=== PATIENT | male | born 1985 | race Caucasian/White ===

== ENCOUNTER → 2023-08-08 16:28 | Outpatient (BNVA) | payer BC, SELFPAY | PROVIDERS: Visit Provider Emergency Medicine | DX: R16.0 Hepatomegaly, not elsewhere classified (principal) | CPT/HCPCS: 80053; 80074; 85007; 85027; 85610; 85730 ==

== ENCOUNTER → 2023-08-12 14:34 | Outpatient (BNVA) | payer BC, SELFPAY | PROVIDERS: Visit Provider Family Medicine | DX: E03.9 Hypothyroidism, unspecified (principal); R16.0 Hepatomegaly, not elsewhere classified; R79.89 Other specified abnormal findings of blood chemistry | CPT/HCPCS: 80053; 84439; 84443 ==

== ENCOUNTER 2023-08-24 08:28 | Outpatient (CLI) | payer BC, SELFPAY ==
--- NOTE | 2023-08-24 08:45 | US_ITS ---
WS: [id number] Complete ABDOMINAL ULTRASOUND HISTORY: hepatomegaly COMPARISON: None available. Liver: 15.8 cm in length. Normal size liver and echogenicity. No bile duct dilatation or mass. Portal Vein: Normal hepatopetal flow with monophasic waveform. Gallbladder: Normally distended gallbladder with no stones or wall thickening. CBD: 0.3 cm Pancreas: Normal size and echogenicity. Right kidney: 11.1 cm x 5.6 x 4.6 cm. Cortex:1.1 cm. Normal size and echogenicity. No hydronephrosis or mass. Left kidney: 11.0 cm x 6.0 cm x 5.5 cm. Cortex: 1.5 cm. Normal size and echogenicity. No hydronephrosis or mass. Spleen: 12.0; normal. Aorta and IVC: Unremarkable abdominal aorta and IVC. Impression: Normal complete abdomen ultrasound.
== END 2023-08-24 08:29 | disposition home or self-care (01) ==
LOC: RAD 08:30
PROVIDERS: PCP Family Medicine; Visit Provider Emergency Medicine
DX: R16.0 Hepatomegaly, not elsewhere classified (principal)
CPT/HCPCS: 76700

== ENCOUNTER 2023-11-11 07:58 | Day surgery (SDC) | payer BC, SELFPAY ==
--- NOTE | 2023-11-11 08:05 | ANES.PREANE2 ---
Pre-Anesthetic Assessment Height/Weight: Height 1.78 m Weight 108.862 kg Operation Date: 11/11/23 09:00 Proposed Procedures p EGD(Not Applicable) - Bhavesh Lieberman DO s Colonoscopy(Not Applicable) - Bhavesh Lieberman DO Social Alcohol and Tobacco Exam alert, oriented x 3, clear to auscultation bilaterally and regular rate & rhythm Airway Submandibular: within normal limits Cervical ROM: within normal limits Mallampati: Class II CV/HEM Hypertension Hepatic Hepatomegally Metabolic Thyroid Disease (Hypo) Anesthetic Plan ASA status: 2 Anesthesia: MAC Medications/Allergies Home Medications Medication Instructions Recorded Confirmed Last Taken Type olmesartan 40 mg tablet 40 mg PO DAILY 08/08/23 11/09/23 11/09/23 History levothyroxine 75 mcg capsule 75 mcg PO DAILY #90 caps 08/14/23 11/09/23 11/11/23 Rx tirzepatide 2.5 mg/0.5 mL 2.5 mg SUBCUT .weekly 09/24/23 11/09/23 2 Weeks Ago History subcutaneous pen injector ~10/26/23 Allergies Allergy/AdvReac Type Severity Reaction Status Date / Time No Known Allergies Allergy Verified 11/09/23 11:25 [facility] Anesthesia Medical History Hx of blood clots Low testosterone in male Hypothyroidism Essential hypertension Social History Smoking and tobacco/nicotine status: current every day tobacco/nicotine user smokeless tobacco Smokeless tobacco user: chewing tobacco Alcohol intake: current Alcohol intake frequency: 0-2 Drinks per Day Substance/Drug Use: former Former substance use details: last used 17yrs ago Data Anesthesia Cardiac Studies: No Data to Display
[2023-11-11 08:12] VITALS: BP 124/87; PULSE 81; RESP 18; TEMP 36.2; O2SAT 96
[2023-11-11] MEDS: sodium chloride 0.9% 1,000 ML 30 ML IV (08:15)
--- NOTE | 2023-11-11 09:14 | PM.HP ---
Providers/Chief Complaint Primary Care Provider: Deny Sanders MD Chief Complaint: Z12.11 History of Present Illness Caleb Tarango is a 38 year old male Review of Systems General: Reports: 10 or more systems reviewed and unremarkable except in HPI and below Medications/Allergies Home Medications Medication Instructions Recorded Confirmed Last Taken Type olmesartan 40 mg tablet 40 mg PO DAILY 08/08/23 11/09/23 11/10/23 History levothyroxine 75 mcg capsule 75 mcg PO DAILY #90 caps 08/14/23 11/09/23 11/10/23 Rx tirzepatide 2.5 mg/0.5 mL 2.5 mg SUBCUT .weekly 09/24/23 11/09/23 2 Weeks Ago History subcutaneous pen injector ~10/26/23 Allergies Allergy/AdvReac Type Severity Reaction Status Date / Time No Known Allergies Allergy Verified 11/09/23 11:25 PFSH Acute PFSH: Medical History Hx of blood clots Low testosterone in male Hypothyroidism Essential hypertension Social History Smoking and tobacco/nicotine status: current every day tobacco/nicotine user smokeless tobacco Smokeless tobacco user: chewing tobacco Alcohol intake: current Alcohol intake frequency: 0-2 Drinks per Day Substance/Drug Use: former Former substance use details: last used 17yrs ago Vitals/I&O/Wt Last Vital Signs Temp 97.1 F L 11/11/23 08:12 Pulse 81 11/11/23 08:12 Resp 18 11/11/23 08:12 BP 124/87 11/11/23 08:12 Pulse Ox 96 11/11/23 08:12 O2 Del Method Room Air 11/11/23 08:12 Weight last 48 hrs Weight 240 lb A&P Assessment and plan (1) GI bleed: Plan EGD and colonoscopy Attestations Medical Necessity Statement*: home Coding Level of Care Code Acute Code for Chg Fwd Diagnoses GI bleed K92.2
[2023-11-11 09:51] VITALS: BP 104/66; PULSE 80; RESP 14; TEMP 36.3; O2SAT 90
[2023-11-11 10:12] VITALS: BP 126/77; PULSE 84; RESP 18; O2SAT 94
--- NOTE | 2023-11-11 12:13 | ANE.PACU2 ---
Inpatient post-anesthesia follow up: Vital signs: Temperature 97.3 F Pulse Rate 84 Respiratory Rate 18 Blood Pressure 126/77 Pulse Oximetry 94 Oxygen Delivery Me thod Room Air Oxygen Flow Rate 4 Fraction of Inspir ed Oxygen Hydration adequate: Yes Nausea and vomiting: No Pain level: 1 Mental status: Baseline
== END 2023-11-11 10:24 | disposition home or self-care (01) ==
PROVIDERS: PCP Family Medicine; Visit Provider Surgery
PROC: 0DJ08ZZ Inspection of Upper Intestinal Tract, Via Natural or Artificial Opening Endoscopic (ICD-10-PCS; CPT 43235; principal; 2023-11-11 09:00)
PROC: 0DJD8ZZ Inspection of Lower Intestinal Tract, Via Natural or Artificial Opening Endoscopic (ICD-10-PCS; CPT 45378; 2023-11-11 09:00)
DX: Z12.11 Encounter for screening for malignant neoplasm of colon (principal); D12.5 Benign neoplasm of sigmoid colon; K29.70 Gastritis, unspecified, without bleeding; E03.9 Hypothyroidism, unspecified; I10 Essential (primary) hypertension; F17.200 Nicotine dependence, unspecified, uncomplicated
CPT/HCPCS: 43239; 45381; 45385; 88305; 88342; J2704; J7030

== ENCOUNTER → 2025-06-19 09:49 | Outpatient (BNVA) | payer BC, SELFPAY | PROVIDERS: PCP Family Medicine; Visit Provider Registered Nurse Neonatal Intensive Care | DX: S93.145A Subluxation of metatarsophalangeal joint of left lesser toe(s), initial encounter (principal); X58.XXXA Exposure to other specified factors, initial encounter | CPT/HCPCS: 73630; 84550 ==

== ENCOUNTER → 2025-06-29 09:17 | Outpatient (BNVA) | payer BC, SELFPAY | PROVIDERS: PCP Family Medicine | DX: E03.9 Hypothyroidism, unspecified (principal) | CPT/HCPCS: 80053; 85025 ==